=== PATIENT | male | born 1970 | race African-American/Black ===

== ENCOUNTER 2019-06-24 13:27 | Emergency (ER) | payer OTHER ==
[~2019-06-24] VITALS: Ht 172.7 cm; Wt 152.0 kg
== END 2019-06-24 20:01 | disposition home or self-care (01) ==
LOC: ER 13:27
DX: M10.071 Idiopathic gout, right ankle and foot (principal); I16.0 Hypertensive urgency; I10 Essential (primary) hypertension; I51.7 Cardiomegaly